=== PATIENT | female | born 1985 | race American Indian/Alaskan Native ===

== ENCOUNTER 2016-07-31 23:41 | Emergency (ER) | payer MEDICAID ==
[2016-07-31 23:42] VITALS: BMI 37.4
[2016-07-31 23:53] VITALS: RESP 18; O2SAT 99
--- NOTE | 2016-08-01 02:06 | C.PDOC ---
History Of Present Illness 31 year old female presents to the ED with complaints of throat pain and painful swallowing for the past week. Patient states the symptoms worsened today , especially to the right side and she notes she feels some swelling under her chin. 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 Denies fever, chills, neck pain, cough, or any other complaints at this time. Time Seen by Provider: 08/01/16 01:00 Chief Complaint (Nursing): ENT Problem History Per: Patient History/Exam Limitations: no limitations Onset/Duration Of Symptoms: Days Current Symptoms Are (Timing): Still Present Location Of Pain: Throat Associated Symptoms: Sore Throat. 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 Constitutional: Negative for: Fever, Chills ENT: Positive for: Throat Pain, Other (+Pain with swallowing) Respiratory: Negative for: Cough Musculoskeletal: Negative for: Neck Pain Physical Exam - Physical Exam Appears: Non-toxic, No Acute Distress Skin: Normal Color, Warm, Dry Head: Atraumatic, Normacephalic Eye(s): bilateral: Normal Inspection Oral Mucosa: Moist Throat: Erythema, No Exudate, No Drooling, No Other (No tonsilar enlargement) Neck: Supple Lymphatic: Other (+Right> left tenderness to the submandibular nodes. + Tenderness to the posterior cervical nodes) Chest: Symmetrical Cardiovascular: Rhythm Regular Respiratory: Normal Breath Sounds, No Accessory Muscle Use, No Rales, No Rhonchi , No Wheezing Extremity: Normal ROM Neurological/Psych: Oriented x3, Normal Speech, Normal Cognition ED Course And Treatment O2 Sat by Pulse Oximetry: 99 (Room air) Pulse Ox Interpretation: Normal Progress Note: Rapid strep and POC urine ordered. Patient treated with Motrin. Disposition Counseled Patient/Family Regarding: Diagnosis, Need For Followup - Disposition Referrals: Chip Curtis MD [Staff Provider] - Non [facility] Provider, [Primary Care Provider] - Disposition: HOME/ ROUTINE Disposition Time: 02:21 Condition: GOOD Additional Instructions: Tylenol (1000 mg) or Motrin (600 mg) for pain every 6 hours. Follow up in your clinic or with ENT physician Dr Curtis a few days. Return to ER for any worsening symptoms. Gargle with warm salty water several times a day. Instructions: Pharyngitis (ED) Forms: Work Excuse - Clinical Impression Clinical Impression: Pharyngitis - PA / [employer] / Resident Statement MD/DO has reviewed & agrees with the documentation as recorded. - Scribe Statement The provider has reviewed the documentation as recorded by the Scribe Rosy Mckeon. All medical record entries made by the Scribe were at my direction and personally dictated by me. I have reviewed the chart and agree that the record accurately reflects my personal performance of the history, physical exam, medical decision making, and the department course for this patient. I have also personally directed, reviewed, and agree with the discharge instructions and disposition.
[2016-08-01 02:37] VITALS: BP 110/72; PULSE 82; TEMP 98.1
== END 2016-08-01 02:36 | disposition home or self-care (01) ==
LOC: C.ER 23:41 → SUPCPDRO 23:41 → C.ER 08-01 02:36
DX: J02.9 Acute pharyngitis, unspecified (principal)